=== PATIENT | male | born 1980 | race Caucasian/White ===

== ENCOUNTER 2018-10-29 06:29 | Emergency (ER) | payer BC ==
[~2018-10-29] VITALS: Ht 182.9 cm; Wt 118.0 kg
[2018-10-29 06:33] VITALS: Ht 182.9 cm; Wt 118.0 kg
[2018-10-29] MEDS ORDERED: IBUP-1542 PO (06:56)
[2018-10-29] MEDS ORDERED: AZIT250T PO (06:56)
--- NOTE | 2018-10-29 06:56 | ERD ---
ER Documentation Chief Complaint Chief Complaint SORE THROAT X 1 WEEK HPI This is a 38-year-old male with a history of strep pharyngitis presents to the ER for evaluation of throat pain. The patient states that he had throat pain for the past week and states that he has had fevers. He denies any cough and states that last time he felt like this he was diagnosed with strep throat. The patient came to the ER today for evaluation. He denies any difficulty swallowing, or chest pain or shortness of breath associated with the symptoms ROS All systems reviewed and are negative except as per history of present illness. Allergies Allergies: Coded Allergies: Penicillins (Verified Allergy, Unknown, 10/29/18) Physical Exam Vitals Vital Signs Date Temp Pulse Resp B/P (MAP) Pulse Ox O2 O2 Flow FiO2 Time Delivery Rate 10/29/18 98.1 90 18 148/93 99 06:33 (111) Physical Exam Const: No acute distress Head: Atraumatic Eyes: Normal Conjunctiva ENT: Pharyngeal erythema with white visible exudate noted on the bilateral tonsils, normal External Ears, Nose and Mouth. Neck: Full range of motion. No meningismus. Resp: Clear to auscultation bilaterally Cardio: Regular rate and rhythm, no murmurs Abd: Soft, non tender, non distended. Normal bowel sounds Skin: No petechiae or rashes Back: No midline or flank tenderness Ext: No cyanosis, or edema Neur: Awake and alert Psych: Normal Mood and Affect Procedures/MDM This 38-year-old male presents the ER for evaluation of throat pain. On my exam the patient has pharyngeal erythema with visible exudate on the bilateral tonsils consistent with acute strep pharyngitis. The patient is allergic to penicillins and states that azithromycin has helped him in the past. He will be discharged home with a prescription for azithromycin and Motrin. He is tolerating his secretions well with no drooling or posturing at this time. He was given strict return precautions. There is no signs of a peritonsillar abscess. Departure Diagnosis: Primary Impression: Strep pharyngitis Additional Impression: Acute streptococcal pharyngitis Condition: Stable MANE BEE DO Oct 29, 2018 06:56
[2018-10-29 07:02] VITALS: BP 144/79; PULSE 78; RESP 18
== END 2018-10-29 07:39 | disposition home or self-care (01) ==
LOC: E/R 06:29
DX: J02.0 Streptococcal pharyngitis (principal)
CPT/HCPCS: 99283